=== PATIENT | male | born 1970 | race African-American/Black ===

== ENCOUNTER 2016-11-10 14:28 | Emergency (ER) | payer OTHER ==
[2016-11-10] MEDS ORDERED: ACETAMINOPHEN 325 MG TABLET PO STA (16:26)
[2016-11-10] MEDS ORDERED: DIPHENOX/ATROPINE 2.5/0.025 MG TABLET PO STA (16:26)
[2016-11-10] MEDS ORDERED: ONDANSETRON ODT 4 MG TABLET TL STA (16:26)
[2016-11-10] MEDS ORDERED: DIPHENOX/ATROPINE 2.5/0.025 MG TABLET PO ONE (16:42)
[2016-11-10] MEDS ORDERED: ACETAMINOPHEN 325 MG TABLET PO ONE (16:42)
[2016-11-10] MEDS ORDERED: ONDANSETRON ODT 4 MG TABLET ONE (16:42)
== END 2016-11-10 16:55 | disposition home or self-care (01) ==
DX: A09 Infectious gastroenteritis and colitis, unspecified (principal)
CPT/HCPCS: 99283; A9270; Q0162